=== PATIENT | male | born 1980 | race Caucasian/White ===

== ENCOUNTER 2019-10-06 14:15 | Emergency (ER) | payer SELFPAY ==
--- NOTE | 2019-10-06 14:57 | EDM.PDOC ---
ED HPI GENERAL MEDICAL PROBLEM - General Chief Complaint: Lower Extremity Injury/Pain Stated Complaint: R FOOT SKIN COMPLAINT Time Seen by Provider: 10/06/19 14:38 Source of Information: Reports: Patient History Limitations: Reports: No Limitations - History of Present Illness INITIAL COMMENTS - FREE TEXT/NARRATIVE: 39-year-old male attends the ER at the request of his primary care provider over at [facility]. Concern arose over discoloration of his right second toe. He recognized that the toe did not appear normal and after discussion with his mother and sending her photos who is a nurse she advised him to seek medical attention. He has no pain in the toe. 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 He states he used to weigh 430 pounds but is lost 60 pounds over the last 6 months by working out at the gym and changing his diet. His blood pressure was elevated and is coming down nicely. His cholesterol was elevated and is also coming down. He has stopped eating red meat. Concern was whether or not he was diabetic as he is having some peripheral neuropathy symptoms in both of his feet. This is been going on for many months. He therefore essentially came for a checkup and to make sure that his toe was okay and not losing its blood supply. They could not identify dorsalis pedis pulses in either foot at the clinic and nor could I in 10% of the population does not have a dorsalis pedis pulse and this appears to be his case. Onset: Gradual, Unknown/Unsure (Thinks the toe was not look quite right for good 2 weeks or more.) Duration: Day(s):, Getting Worse Location: Reports: Lower Extremity, Right (Second toe is discolored and now becoming slightly erythematous on the tip) Quality: Reports: Other (Has no pain.). Denies: Ache Severity: Mild Improves with: Reports: None Worsens with: Reports: None Context: Reports: Other (Appreciated change in color of his right second toe over the last several weeks but slightly more reddened today. It still does not hurt. He history suggest that he has bilateral mild peripheral neuropathy in both lower extremities for couple of years. The reason for this is unclear. He has never been diagnosed with diabetes.). Denies: Activity, Exercise, Lifting, Sick Contact, Trauma Associated Symptoms: Reports: No Other Symptoms Treatments [employer]: Reports: Other (see below) (None.) - Related Data Allergies Allergy/AdvReac Type Severity Reaction Status Date / Time No Known Allergies Allergy Verified 10/06/19 14:28 Home Meds: Home Meds Doxycycline [Vibramycin] 100 mg PO BID #24 cap 10/06/19 [Rx] Past Medical History - Past Health History Medical/Surgical History: Denies Medical/Surgical History Endocrine/Metabolic History: Reports: Obesity/BMI 30+ Social & Family History - Tobacco Use Smoking Status *Q: Former Smoker Used Tobacco, but Quit: Yes Month/Year Tobacco Last Used: 2018 - Recreational Drug Use Recreational Drug Use: No - Living Situation & Occupation Living situation: Reports: Single Occupation: Employed Review of Systems - Review of Systems Review Of Systems: See Below Constitutional: Reports: No Symptoms Eyes: Reports: No Symptoms Ears: Reports: No Symptoms Nose: Reports: No Symptoms Mouth/Throat: Reports: No Symptoms Respiratory: Reports: No Symptoms Cardiovascular: Reports: No Symptoms GI/Abdominal: Reports: No Symptoms Genitourinary: Reports: No Symptoms Musculoskeletal: Reports: Back Pain, Joint Pain (Knees hips low back at times but they gotten better since he is lost 60 pounds of weight.) Skin: Reports: Change in Color (Discoloration of his right fourth) Neurological: Reports: No Symptoms Psychiatric: Reports: No Symptoms ED EXAM, GENERAL - Physical Exam Exam: See Below Exam Limited By: No Limitations General Appearance: Alert, WD/WN, Anxious, Other (Mildly anxious after visit to the clinic. Vital signs are all normal other than blood pressure at 147/88 and it did come down to 142/82.) Peripheral Pulses: 0: Dorsalis Pedis (L) (Does not have a dorsalis pedis pulse by palpation or Doppler on either side. 10% of the population do not have a dorsalis pedis pulse.), Dorsalis Pedis (R), 3+: Posterior Tibial (L), Posterior Tibial (R) Extremities: Other (Examination was limited to his right foot and left foot. His second toes happened to be the longest of his toes and he has callosity on the tip of the toe with erosion of the tip of the toenail as well on the second toe and mild callosity on the tip of the right third toe as well. Essentially his boots are too small for him and are rubbing up against the toe of the boot causing callus formation. Unfortunately a little bit of infection has occurred under the callus over the dorsal toe but not not a true paronychial infection at this time. No pain on firm compression of the toe.) Neurological: Alert, Oriented, CN II-XII Intact, Normal Cognition, Normal Gait, Other (He has decreased sensation I vibration sense to the) Psychiatric: Normal Affect, Normal Mood Skin Exam: Warm, Dry, Intact, Normal Color, Other (Bluish-reddish discoloration tip of the right second toe.) Course - Vital Signs Last Recorded V/S: Last Vital Signs Temp 36.6 C 10/06/19 14:20 Pulse 78 10/06/19 14:20 Resp 16 10/06/19 14:20 BP 147/88 H 10/06/19 14:20 Pulse Ox 98 10/06/19 14:20 - Orders/Labs/Meds Orders: Active Orders 24 hr Category Date Time Status TESTOSTERONE,FREE AND TOTAL [REF] Routine Lab 10/06/19 15:17 Received Labs: Laboratory Tests 10/06/19 10/06/19 10/06/19 Range/Units 15:17 15:17 15:17 WBC 11.90 H (4.23-9.07) K/mm3 RBC 5.30 (4.63-6.08) M/mm3 Hgb 15.5 (13.7-17.5) gm/dl Hct 46.8 (40.1-51.0) % MCV 88.3 (79.0-92.2) fl MCH 29.2 (25.7-32.2) pg MCHC 33.1 (32.2-35.5) g/dl RDW Std Deviation 44.5 H (35.1-43.9) fL Plt Count 219 (163-337) K/mm3 MPV 11.6 (9.4-12.3) fl Neut % (Auto) 65.2 (34.0-67.9) % Lymph % (Auto) 25.0 (21.8-53.1) % [place] % (Auto) 7.4 (5.3-12.2) % Eos % (Auto) 1.8 (0.8-7.0) Baso % (Auto) 0.3 (0.1-1.2) % Neut # (Auto) 7.76 H (1.78-5.38) K/mm3 Lymph # (Auto) 2.98 (1.32-3.57) K/mm3 [place] # (Auto) 0.88 H (0.30-0.82) K/mm3 Eos # (Auto) 0.21 (0.04-0.54) K/mm3 Baso # (Auto) 0.03 (0.01-0.08) K/mm3 Manual Slide Review Normal smear Sodium 138 (136-145) mEq/L Potassium 4.1 (3.5-5.1) mEq/L Chloride 101 (98-107) mEq/L Carbon Dioxide 23 (21-32) mEq/L Anion Gap 18.1 H (5-15) BUN 20 H (7-18) mg/dL Creatinine 0.9 (0.7-1.3) mg/dL Est Cr Clr Drug Dosing 125.77 mL/min Estimated GFR (MDRD) > 60 (>60) mL/min BUN/Creatinine Ratio 22.2 H (14-18) Glucose 94 (74-106) mg/dL Hemoglobin A1c (4.50-6.20) % Calcium 10.0 (8.5-10.1) mg/dL Iron 59 L (65-175) ug/dL TIBC 326 (100-400) ug/dL % Saturation 18 L (20-55) % Transferrin 261 (202-364) mg/dL Total Bilirubin 0.7 (0.2-1.0) mg/dL AST 45 H (15-37) U/L ALT 58 (16-63) U/L Alkaline Phosphatase 66 (46-116) U/L C-Reactive Protein 1.3 H* (<1.0) mg/dL Total Protein 8.4 H (6.4-8.2) g/dl Albumin 4.4 (3.4-5.0) g/dl Globulin 4.0 gm/dL Albumin/Globulin Ratio 1.1 (1-2) Vitamin B12 1859 H (193-986) pg/ml TSH 3rd Generation 2.135 (0.358-3.74) uIU/mL 10/06/19 Range/Units 15:17 WBC (4.23-9.07) K/mm3 RBC (4.63-6.08) M/mm3 Hgb (13.7-17.5) gm/dl Hct (40.1-51.0) % MCV (79.0-92.2) fl MCH (25.7-32.2) pg MCHC (32.2-35.5) g/dl RDW Std Deviation (35.1-43.9) fL Plt Count (163-337) K/mm3 MPV (9.4-12.3) fl Neut % (Auto) (34.0-67.9) % Lymph % (Auto) (21.8-53.1) % [place] % (Auto) (5.3-12.2) % Eos % (Auto) (0.8-7.0) Baso % (Auto) (0.1-1.2) % Neut # (Auto) (1.78-5.38) K/mm3 Lymph # (Auto) (1.32-3.57) K/mm3 [place] # (Auto) (0.30-0.82) K/mm3 Eos # (Auto) (0.04-0.54) K/mm3 Baso # (Auto) (0.01-0.08) K/mm3 Manual Slide Review Sodium (136-145) mEq/L Potassium (3.5-5.1) mEq/L Chloride (98-107) mEq/L Carbon Dioxide (21-32) mEq/L Anion Gap (5-15) BUN (7-18) mg/dL Creatinine (0.7-1.3) mg/dL Est Cr Clr Drug Dosing mL/min Estimated GFR (MDRD) (>60) mL/min BUN/Creatinine Ratio (14-18) Glucose (74-106) mg/dL Hemoglobin A1c 6.00 (4.50-6.20) % Calcium (8.5-10.1) mg/dL Iron (65-175) ug/dL TIBC (100-400) ug/dL % Saturation (20-55) % Transferrin (202-364) mg/dL Total Bilirubin (0.2-1.0) mg/dL AST (15-37) U/L ALT (16-63) U/L Alkaline Phosphatase (46-116) U/L C-Reactive Protein (<1.0) mg/dL Total Protein (6.4-8.2) g/dl Albumin (3.4-5.0) g/dl Globulin gm/dL Albumin/Globulin Ratio (1-2) Vitamin B12 (193-986) pg/ml TSH 3rd Generation (0.358-3.74) uIU/mL - Radiology Interpretation Free Text/Narrative:: 39year-old male attends the ED at the request of his primary care physician due to abnormality of his right second toe that is likely been going on for over a month. She was concerned about the discoloration of the toe and whether or not he had loss circulation to the toe. The patient has some peripheral neuropathy symptoms in both dorsal feet for many months and perhaps even a year. He is not known to be diabetic. He has recently lost 60 pounds and is down from 430 to 370 pounds. He does not report any known trauma to the toe. The toe has slight erythema of the distal aspect as well as some blueness or discoloration of the toe itself. Unfortunately in his right second toe is the longest toe and it is rubbing up against his boot. He works in the [employer] service. On inspection of the toe he has callosity of the tip of the toe with loss of approximately a third of the toenail itself due to blunt force trauma on a repetitive basis. He has a mild callosity of his right third toe as well with retention of the nail. There is no problem with the circulation to the toe and there is no signs of any purulent discharge or ulceration. There is some mild erythema to the dorsal aspect and I think is more trauma to the nail. However I will plan on placing him on doxycycline 100 mg twice daily for 12 days to make sure that there is no infection that could spread. He requested lab work be done to particularly identify he is not a diabetic. - Re-Assessments/Exams Free Text/Narrative Re-Assessment/Exam: 10/06/19 16:02 White count is minimally elevated at 11.90. The differential shows 65% neutrophils. Hemoglobin is 15.5 with hematocrit of 46.8. Platelet counts 219,000 hemoglobin A1c is 6.0 indicating he does not have any signs of diabetes. 10/06/19 16:33 Differential on the white count is 65% neutrophils and no bands cells identified. Sodium was 138 with a potassium of 4.1. Chloride is 101 with a bicarb of 23. Anion gap is elevated at 18.1. BUN is 20 with a creatinine of 0.9. GFR is greater than 60. Glucose is 94 with a hemoglobin A1c of 6.0. Calcium is 10.0 iron is 59 which actually is on slightly on the low side. TIBC is 326 which is upper limits of normal. Percent saturation is low at 18 transferrin is 261 which is normal bilirubin is 0.7 with an AST of 45 and ALT of 58 and alk phosphatase of 66. C-reactive protein is 1.3. Total protein is 8.4 with an albumin fraction of 4.4. B12 is pending TSH is 2.135 which is normal Departure - Departure Time of Disposition: 16:36 Disposition: Home, Self-Care 01 Condition: Fair Clinical Impression: Infected abrasion of toe of right foot Qualifiers: Encounter type: initial encounter Qualified Code(s): S90.414A - Abrasion, right lesser toe(s), initial encounter - Discharge Information *PRESCRIPTION DRUG MONITORING PROGRAM REVIEWED*: Not Applicable *COPY OF PRESCRIPTION DRUG MONITORING REPORT IN PATIENT RICKY: Not Applicable Prescriptions: Doxycycline [Vibramycin] 100 mg PO BID #24 cap Referrals: PCP,None [Primary Care Provider] - Forms: ED Department Discharge Additional Instructions: Evaluation in the emergency room today in regards to concerns for slight redness and discoloration of the right second toe. On inspection of the toe there is callosity formation on the tip of the toe with wear and tear on the nailbed or the tip of the toenail as well as a callosity forming on the adjacent third toe. This means your boots are a bit too small for you in their toes particular second toe which is a lot your longest toe is rubbing on the edge of the boot. This is creating thickening of the skin in this area to protect it. Fortunately appears that it is developed a low-grade infection and requires antibiotic doxycycline 100 mg twice daily for the next 12 days to clear up infection in the toe. Next time you buy boots you need to get at least a half an inch larger size. Testing the toes much as possible with double socks or other mechanisms that we discussed such as mole skin beneficial to protect the toe from further damage. Lab work was done at your request and in particular revealed that you have no signs or symptoms of diabetes. Your hemoglobin A1c was 6.0 which is excellent. Your thyroid gland is functioning normally. Liver kidneys were functioning normally as well. The only finding was that you are starting to become iron deficient but without any anemia or low blood. You need to add iron to your vitamin tablet taken daily to slowly bring your iron levels back up to normal. This is likely occurred since you removed red meat from your diet. Doxycycline antibiotic should be taken twice daily but not with your vitamins or any milk products as it binds onto the medication and makes it ineffectual. Lecture told to return to normal color over the next 6 weeks it will take some time. Dust arranging for a primary care physician to address other issues. In regards to other test ordered today including serum testosterone level and your vitamin B12 levels these will become available to me over the next 3 to 4 days and I will contact you by phone in this regard. Sepsis Event Note - Evaluation Sepsis Screening Result: No Definite Risk - Focused Exam Vital Signs: Vital Signs Temp Pulse Resp BP Pulse Ox 10/06/19 14:20 36.6 C 78 16 147/88 H 98 Date Exam was Performed: 10/06/19 Time Exam was Performed: 20:08 - My Orders Last 24 Hours: My Active Orders 10/06/19 15:17 TESTOSTERONE,FREE AND TOTAL [REF] Routine - Assessment/Plan Last 24 Hours: My Active Orders 10/06/19 15:17 TESTOSTERONE,FREE AND TOTAL [REF] Routine
== END 2019-10-06 16:40 | disposition home or self-care (01) ==
LOC: JD.ED 14:15
DX: S90.414A Abrasion, right lesser toe(s), initial encounter (principal); L08.9 Local infection of the skin and subcutaneous tissue, unspecified; E66.9 Obesity, unspecified; Z87.891 Personal history of nicotine dependence; X58.XXXA Exposure to other specified factors, initial encounter
CPT/HCPCS: 36415; 80053; 82607; 83036; 83540; 84402; 84403; 84443; 84466; 85025; 86140; 99283

== ENCOUNTER 2020-02-16 08:09 | Day surgery (SDC) | payer SELFPAY ==
[~2020-02-16 08:09] MED LIST: Lactated Ringers 1,000 ML IV SCH; Lidocaine 1%/Sod Bicarbonate in NS 8.4% 1 ML Syringe IDERM PRN; Sodium Chloride 0.9% 10 ML Syringe FLUSH PRN
[2020-02-16] MEDS ORDERED: Lidocaine 1% 30 ML SDV ONE (09:00)
--- NOTE | 2020-02-16 09:58 | PCM.PREANE ---
Preanesthetic Assessment - Anesthesia/Transfusion/Family Hx Anesthesia History: Prior Anesthesia Without Reaction - Review of Systems General: No Symptoms Pulmonary: No Symptoms Cardiovascular: No Symptoms Gastrointestinal: No Symptoms Neurological: No Symptoms Other: Reports: None - Physical Assessment NPO Status Date: 02/15/20 NPO Status Time: 22:30 Vital Signs: Last Vital Signs Temp 97.2 F 02/16/20 08:10 Pulse 59 L 02/16/20 08:10 Resp 16 02/16/20 08:10 BP 144/72 H 02/16/20 08:10 Pulse Ox 94 L 02/16/20 08:10 Height: 1.88 m Weight: 146.057 kg ASA Class: 2 Mental Status: Alert & Oriented x3 Airway Class: Mallampati = 1 Dentition: Reports: Normal Dentition Thyro-Mental Finger Breadths: 3 Mouth Opening Finger Breadths: 3 ROM/Head Extension: Full (full segundo) Lungs: Clear to Auscultation, Normal Respiratory Effort Cardiovascular: Regular Rate, Regular Rhythm - Allergies Allergies/Adverse Reactions: Allergies Allergy/AdvReac Type Severity Reaction Status Date / Time No Known Allergies Allergy Verified 02/16/20 08:51 - Acknowledgements Anesthesia Type Planned: Regional Block, MAC Pt an Appropriate Candidate for the Planned Anesthesia: Yes Alternatives and Risks of Anesthesia Discussed w Pt/Guardian: Yes Pt/Guardian Understands and Agrees with Anesthesia Plan: Yes PreAnesthesia Questionnaire - Past Health History Medical/Surgical History: Denies Medical/Surgical History Respiratory History: Reports: Sleep Apnea Musculoskeletal History: Reports: Other (See Below) Other Musculoskeletal History: osteomyelitis to right foot Neurological History: Reports: Other (See Below) Other Neuro History: herniated disc with cortisone injection Psychiatric History: Reports: None Endocrine/Metabolic History: Reports: Obesity/BMI 30+ (Morbid) Hematologic History: Reports: None Immunologic History: Reports: None Oncologic (Cancer) History: Reports: None Dermatologic History: Reports: None - Infectious Disease History Infectious Disease History: Reports: None - Past Surgical History Head Surgeries/Procedures: Reports: None Endocrine Surgical History: Reports: None Neurological Surgical History: Reports: None Musculoskeletal Surgical History: Reports: None Oncologic Surgical History: Reports: None Dermatological Surgical History: Reports: None - SUBSTANCE USE Smoking Status *Q: Never Smoker Recreational Drug Use History: No - CURRENT (IN HOUSE) MEDS Current Meds: Current Medications Lactated Ringer's (Ringers, Lactated) 1,000 mls @ 125 mls/hr IV ASDIRECTED DUARTE Stop: 02/16/20 23:00 Last Admin: 02/16/20 08:30 Dose: 125 mls/hr Documented by: Lidocaine/Sodium Bicarbonate (Buffered Lidocaine 1% In Ns 8.4%) 0.25 ml IDERM ONETIME PRN PRN Reason: Prior to IV Start Stop: 02/16/20 18:00 Last Admin: 02/16/20 08:30 Dose: 0.25 ml Documented by: Sodium Chloride (Saline Flush) 10 ml FLUSH ASDIRECTED PRN PRN Reason: Keep Vein Open Stop: 02/16/20 18:00 Discontinued Medications Bupivacaine HCl (Marcaine 0.5%) Confirm Administered Dose 30 ml .ROUTE .STK-MED ONE Stop: 02/16/20 09:01 Lidocaine HCl (Xylocaine-Mpf 1%) Confirm Administered Dose 30 ml .ROUTE .STK-MED ONE Stop: 02/16/20 09:01
[2020-02-16] MEDS ORDERED: Ropivacaine 0.5% 5 MG/ML 30 ML SDV ONE (10:01)
[2020-02-16] MEDS ORDERED: Lidocaine 2% with EPINEPHrine 1:200,000 20 ML SDV ONE (10:03)
[2020-02-16] MEDS ORDERED: Midazolam 1 MG/ML 2 ML SDV ONE (10:07)
[2020-02-16] MEDS ORDERED: Lidocaine 1% 4 ML ONE (10:36)
[2020-02-16] MEDS ORDERED: Propofol 200 MG/20 ML SDV ONE (10:36)
[2020-02-16] MEDS ORDERED: fentaNYL 100 MCG/2 ML SDV ONE (10:41)
[2020-02-16] MEDS ORDERED: ceFAZolin 1 GM Vial ONE (10:42)
[2020-02-16] MEDS: Bupivacaine 0.5% 30 ML SDV ONE ×2 (10:50→11:35)
--- NOTE | 2020-02-16 11:15 | PCM.PRNOTE ---
- Free Text/Narrative Note: Postoperative pain control requested by the surgeon Requested by Dr. Wilfredo Meraz. Dx: Right 2nd toe osteomyelitis Surgical Procedure : Right 2nd toe partial amputation Preoperative Treatment: Right ankle block Patient received explanation about an ankle block, benefits and risks discussed, consent signed. Patient in preoperative area, monitors on, oxygen 2L via nasal cannula, semi-Hale position, right foot supported by folded blankets a elevated position. Time out done. Right fool cleaned with Chloraprep stick and allowed to dry. 4 mg of Midazolam given . 1st Injection performed behind medial malleolus at tibial nerve in fanning fashion with negative aspiration confirmed. 2nd injection between extensor hallucis longus and extensor digitorum longus tendons at deep peroneal nerve with negative aspiration confirmed. 3rd injection in the ring fashion infiltrati on at the dorsal surface of the foot at superficial peroneal nerve distribution. Total of 18 mls of 0.5% Ropivacaine with 12 mls of 2% Lidocaine PF with 1:200k epinephrine used. Patient has tolerated the procedure well. No signs of local anesthetic systemic toxicity noted. Start 10:14 End: 1025
--- NOTE | 2020-02-16 11:53 | PCM48HPAN ---
Post Anesthesia Note - EVALUATION WITHIN 48HRS OF ANESTHETIC Vital Signs in Normal Range: Yes Patient Participated in Evaluation: Yes Respiratory Function Stable: Yes Airway Patent: Yes Cardiovascular Function Stable: Yes Hydration Status Stable: Yes Pain Control Satisfactory: Yes Nausea and Vomiting Control Satisfactory: Yes Mental Status Recovered: Yes Vital Signs: Last Vital Signs Temp 97.7 F 02/16/20 11:43 Pulse 60 02/16/20 11:43 Resp 12 02/16/20 11:43 BP 113/47 L 02/16/20 11:43 Pulse Ox 94 L 02/16/20 11:43
--- NOTE | 2020-02-16 11:58 | PCM.OPNOTE ---
- General Post-Op/Procedure Note Date of Surgery/Procedure: 02/16/20 Pre Op Diagnosis: Painful/symptomatic Ulcer, RIGHT 2nd toe. Painful/Symptomatic Osteomyelitis, RIGHT 2nd toe, distal phalange. Post-Op Diagnosis: Same Primary Surgeon: Wilfredo Meraz II Anesthesia Provider: Caio Hodges Pathology: bone - distal phalange, RIGHT 2nd toe EBL in mLs: 10 Complications: None Condition: Good Free Text/Narrative:: Patient left the OR for recovery with vital signs stable and vascular status grossly intact to digits 1-5, RIGHT foot.
--- NOTE | 2020-02-16 12:59 | OR ---
DATE OF OPERATION: 02/16/2020 SURGEON: Wilfredo Meraz II, DPM LOCATION: . ANESTHESIA: MAC with local block about the right foot. ANESTHESIA PROVIDER: Caio Hodges CRNA HEMOSTASIS: Right pneumatic ankle tourniquet at 250 mmHg. PREOPERATIVE DIAGNOSIS: 1. Painful symptomatic ulcer, right second toe. 2. Painful symptomatic osteomyelitis, right second toe involving distal phalange. POSTOPERATIVE DIAGNOSIS: 1. Painful symptomatic ulcer, right second toe. 2. Painful symptomatic osteomyelitis, right second toe involving distal phalange. OPERATION PERFORMED: Partial amputation of right second toe. DESCRIPTION OF PROCEDURE: Upon arrival on admission to the hospital, the patient was examined and cleared for surgery by the assigned anesthesia provider. IV access was obtained in the preoperative area after which patient was given prophylactic antibiotics consisting of 3 g of Ancef IV piggyback. The patient was then brought to the OR via gurney and assisted with transfer onto the operating room table in the supine position. The patient was given a combination of sedations and was adequately sedated before receiving 10 mL of 1:1 mixture of 1% lidocaine plain and 0.5% Marcaine plain in the form of local infiltrative block around the right second toe. The patient also received 0.5% Marcaine plain in the form of an ankle block involving his right foot and ankle. The right lower extremity was then wrapped with cotton Webril padding above the ankle joint in preparation for a nonsterile pneumatic ankle tourniquet, which was then draped with a sterile drape. Right lower extremity was then prepped and draped in the usual aseptic manner. Right lower extremity was then elevated and exsanguinated with the use of an Esmarch bandage before inflating the pneumatic ankle tourniquet to 250 mmHg pressure. The Esmarch bandage was removed, and right lower extremity was placed back to the level of the operating room table. Attention was then directed to the right second toe where a distal fishmouth incision was created proximal to the distal articular phalangeal surface. This was a controlled depth total circumferential incision that allowed for the distal phalange of the right second toe to be completely resected involving the toenail plate and bed as well. The distal phalange was then dissected free from the soft tissue attachments and was sent to Pathology for gross microscopic evaluation. It was at this level that the aerobic and anaerobic cultures were also obtained from the wound site intra-articularly. The wound was then copiously lavaged with sterile saline solution, and after the tip of the right second toe was reflected, subcutaneous stitches consisting of 3-0 and 4-0 Vicryl were undertaken to reapproximate the resected surface of the right second toe. After this had been completed, the skin would be reapproximated with 4-0 Prolene. The patient received an additional 10 mL of 0.5% Marcaine plain injected about the right second toe to the level of the MTPJ. Dressings will consist of Betadine- soaked Adaptic gauze, 4x4 gauze, Johnny, and Emil bandage. Upon completion of the surgery, the right pneumatic ankle tourniquet was deflated, and it was noted that digits 1 through 5 of the right lower extremity became pink indicating that normal vascular perfusion had returned. The patient appeared to tolerate the procedure and anesthesia well and left the OR for recovery with his vital signs being stable and vascular status intact in digits 1 through 5 of the right foot with no apparent complications. In recovery, the patient received written and oral postoperative instructions as well as postoperative pain medication. The patient will ambulate partial weightbearing with a postoperative shoe about his right foot and ankle. ESTIMATED BLOOD LOSS: For these procedures was approximately 10 mL but considered negligible. COMPLICATIONS: There were no other apparent or obvious complications. M[facility] /[id number]
== END 2020-02-16 12:50 | disposition home or self-care (01) ==
LOC: JD.SDS 08:09
PROVIDERS: ATTEND Podiatrist Foot & Ankle Surgery
DX: M86.171 Other acute osteomyelitis, right ankle and foot (principal); M86.671 Other chronic osteomyelitis, right ankle and foot; L97.519 Non-pressure chronic ulcer of other part of right foot with unspecified severity; M79.89 Other specified soft tissue disorders; G47.30 Sleep apnea, unspecified; E66.01 Morbid (severe) obesity due to excess calories; Z68.41 Body mass index [BMI] 40.0-44.9, adult; Z87.891 Personal history of nicotine dependence
CPT/HCPCS: 28825; 87075; 87205; J0690; J2001; J2250; J2704; J2795; J3010; J3490; J7120; 01830; 64450

== ENCOUNTER 2023-02-20 01:23 | Emergency (ER) | payer OTHER, BC ==
[2023-02-20 01:51] LABS: HEMATOCRIT 43.7 % (40.1-51.0); HEMOGLOBIN 14.6 gm/dl (13.7-17.5); MEAN CORPUSCULAR HEMOGLOBIN 29.5 pg (25.7-32.2); MEAN CORPUSCULAR HGB CONC 33.4 g/dl (32.2-35.5); MEAN CORPUSCULAR VOLUME 88.3 fl (79.0-92.2); MEAN PLATELET VOLUME 11.5 fl (9.4-12.3); PLATELET COUNT,PLT 185 K/mm3 (163-337); RED BLOOD CELL COUNT 4.95 M/mm3 (4.63-6.08); WHITE BLOOD CELL COUNT,WBC 12.46 K/mm3 (4.23-9.07)
[2023-02-20 02:10] LABS: INR 1.04; PROTHROMBIN TIME 11.1 SECONDS (9.7-12.0)
[2023-02-20 02:12] LABS: PTT,PARTIAL THROMBOPLSTIN TIME 31.7 SECONDS (21.7-31.4)
[2023-02-20] MEDS ORDERED: Sodium Chloride 0.9% 1,000 ML IV SCH (02:15)
[2023-02-20 02:22] LABS: A/G RATIO 1.1 (1-2); ALBUMIN 4.2 g/dl (3.4-5.0); ANION GAP 20.5 (5-15); BILIRUBIN TOTAL 0.3 mg/dL (0.2-1.0); CALCIUM 9.1 mg/dL (8.5-10.1); EST CRCL DRUG DOSING (CG) 109.86 mL/min; ETHANOL BLOOD MEDICAL 0.14 gm% (0.00); POTASSIUM,K 3.5 mEq/L (3.5-5.1); PROTEIN TOTAL,TP 8.1 g/dl (6.4-8.2)
[2023-02-20 02:27] LABS: BAND PERCENT MAN 0 % (0-10); BASOPHILS PERCENT MAN 0 (0.2-1.2); EOSINOPHILS PERCENT MAN 2 % (0.8-7.0); LYMPHOCYTES % ATYPICAL MANUAL 0 %; LYMPHOCYTES PERCENT MAN 32 % (20-40); MONOCYTES PERCENT MAN 6 % (2-10); PLATELET COUNT ESTIMATE ADEQUATE
== END 2023-02-20 02:20 ==
LOC: JD.ED 01:23
DX: S30.811A Abrasion of abdominal wall, initial encounter (principal); S80.811A Abrasion, right lower leg, initial encounter; F10.929 Alcohol use, unspecified with intoxication, unspecified; S80.212A Abrasion, left knee, initial encounter; E87.20 Acidosis, unspecified; I10 Essential (primary) hypertension; E66.9 Obesity, unspecified; Z68.42 Body mass index [BMI] 45.0-49.9, adult; F17.210 Nicotine dependence, cigarettes, uncomplicated; Z79.899 Other long term (current) drug therapy; V50.5XXA Driver of pick-up truck or van injured in collision with pedestrian or animal in traffic accident, initial encounter; Y92.410 Unspecified street and highway as the place of occurrence of the external cause
CPT/HCPCS: 36415; 70450; 71260; 72125; 74177; 80053; 80307; 83690; 85007; 85027; 85610; 85730; 99285; J7030; 99284

== ENCOUNTER 2023-12-30 18:53 | Inpatient (IN) | payer BC ==
[2023-12-30] MEDS ORDERED: Sodium Chloride 0.9% 10 ML Syringe FLUSH PRN (19:16)
[2023-12-30] MEDS ORDERED: Naloxone 0.4 MG/ML SDV IVPUSH PRN (19:16)
[2023-12-30 19:42] LABS: BASOPHILS ABSOLUTE AUTO 0.1 K/mm3 (0.0-0.2); BASOPHILS PERCENT AUTO 0.4 % (0.0-1.0); EOSINOPHILS ABSOLUTE AUTO 0.1 K/mm3 (0.0-0.4); EOSINOPHILS PERCENT AUTO 0.9 % (0.0-6.0); HEMATOCRIT 42.6 % (42.0-52.0); HEMOGLOBIN 14.7 gm/dl (14.0-18.0); IMMATURE GRAN ABSOLUTE AUTO 0.04 K/mm3 (0.00-0.05); IMMATURE GRAN PERCENT AUTO 0.3 % (0.0-0.4); LYMPHOCYTES PERCENT AUTO 23.7 % (24.0-44.0); MEAN CORPUSCULAR HEMOGLOBIN 30.1 pg (28.0-32.0); MEAN CORPUSCULAR HGB CONC 34.5 g/dl (32.0-36.0); MEAN CORPUSCULAR VOLUME 87.3 fl (83.0-99.0); MEAN PLATELET VOLUME 11.7 fl (9.4-12.4); MONOCYTES ABSOLUTE AUTO 1.2 K/mm3 (0.0-0.8); MONOCYTES PERCENT AUTO 9.7 % (0.0-8.0); NEUTROPHILS ABSOLUTE AUTO 8.3 K/mm3 (1.8-7.7); PLATELET COUNT,PLT 190 K/mm3 (150-400); RED BLOOD CELL COUNT 4.88 M/mm3 (4.52-5.90); WHITE BLOOD CELL COUNT,WBC 12.73 K/mm3 (3.9-11.3)
[2023-12-30] MEDS: Clindamycin Phosphate in D5W 300 MG in Premix Bag 1 BAG IV SCH (19:59)
[2023-12-30] MEDS ORDERED: Lidocaine 1% 20 ML MDV ONE (20:13)
[2023-12-30] MEDS ORDERED: Bupivacaine 0.5% 30 ML SDV ONE (20:13)
[2023-12-30] MEDS ORDERED: fentaNYL 100 MCG/2 ML SDV ONE ×2 (20:24→21:22)
[2023-12-30] MEDS ORDERED: Lidocaine 1% 5 ML VIAL ONE (20:24)
[2023-12-30] MEDS ORDERED: Midazolam 1 MG/ML 2 ML SDV ONE ×2 (20:24→22:00)
[2023-12-30] MEDS ORDERED: Lidocaine 0.5% 50 ML SDV ONE (20:25)
[2023-12-30] MEDS ORDERED: Sodium Bicarbonate 8.4% 50 MEQ/50 ML SDV ONE (20:25)
[2023-12-30] MEDS ORDERED: Propofol 200 MG/20 ML SDV ONE (20:28)
[2023-12-30] MEDS: Ropivacaine 0.5% 5 MG/ML 30 ML SDV ONE (21:03)
[2023-12-30] MEDS: Lidocaine 2% 20 ML MDV ONE (21:03)
[2023-12-30] MEDS ORDERED: Lactated Ringers 1,000 ML ONE (21:13)
[2023-12-30] MEDS ORDERED: Ketorolac 30 MG/ML SDV ONE (21:56)
[2023-12-30] MEDS ORDERED: HYDROmorphone 0.5 MG/0.5 ML Syringe ONE (22:03)
[2023-12-30] MEDS: Heparin Sodium 5,000 Units/ML Vial SUBCUT ONE (22:15)
[2023-12-30] MEDS: Sodium Chloride 0.9% 10 ML Syringe FLUSH SCH (22:15)
[2023-12-30] MEDS: Sodium Chloride 0.9% 1,000 ML IV SCH (22:40)
[2023-12-30] MEDS: Acetaminophen 325 MG Tab PO PRN (22:42)
[2023-12-30] MEDS: Heparin Sodium 5,000 Units/ML Vial SUBCUT SCH (22:58)
[2023-12-31] MEDS: Ketorolac 30 MG/ML SDV IVPUSH PRN (04:02)
[2023-12-31] MEDS: metFORMIN 500 MG Tab PO SCH (06:50)
[2023-12-31 06:57] LABS: BASOPHILS PERCENT AUTO 0.4 % (0.0-1.0); EOSINOPHILS ABSOLUTE AUTO 0.1 K/mm3 (0.0-0.4); EOSINOPHILS PERCENT AUTO 0.9 % (0.0-6.0); HEMATOCRIT 40.4 % (42.0-52.0); HEMOGLOBIN 13.7 gm/dl (14.0-18.0); IMMATURE GRAN ABSOLUTE AUTO 0.04 K/mm3 (0.00-0.05); IMMATURE GRAN PERCENT AUTO 0.4 % (0.0-0.4); LYMPHOCYTES ABSOLUTE AUTO 2.6 K/mm3 (1.0-4.8); LYMPHOCYTES PERCENT AUTO 26.6 % (24.0-44.0); MEAN CORPUSCULAR HEMOGLOBIN 29.7 pg (28.0-32.0); MEAN CORPUSCULAR HGB CONC 33.9 g/dl (32.0-36.0); MEAN CORPUSCULAR VOLUME 87.4 fl (83.0-99.0); MEAN PLATELET VOLUME 11.4 fl (9.4-12.4); MONOCYTES ABSOLUTE AUTO 0.8 K/mm3 (0.0-0.8); MONOCYTES PERCENT AUTO 8.2 % (0.0-8.0); NEUTROPHILS ABSOLUTE AUTO 6.2 K/mm3 (1.8-7.7); NEUTROPHILS PERCENT AUTO 63.5 % (41.0-71.0); PLATELET COUNT,PLT 143 K/mm3 (150-400); RED BLOOD CELL COUNT 4.62 M/mm3 (4.52-5.90); WHITE BLOOD CELL COUNT,WBC 9.71 K/mm3 (3.9-11.3)
[2023-12-31] MEDS ORDERED: Heparin Sodium 5,000 Units/ML Vial SUBCUT SCH (08:00)
[2023-12-31 08:17] LABS: CALCIUM 8.8 mg/dL (8.5-10.1); EST CRCL DRUG DOSING (CG) 108.75 mL/min
[2023-12-31] MEDS: HYDROmorphone 0.5 MG/0.5 ML Syringe IVPUSH PRN (08:44)
[2023-12-31] MEDS: Losartan 50 MG Tab PO SCH (08:46)
[2023-12-31] MEDS: Sodium Chloride 0.9% 1,000 ML IV SCH (12:16)
== END 2023-12-31 15:29 | disposition home or self-care (01) | DRG 364 ==
LOC: JD.MS 18:53
PROVIDERS: ADMIT Family Medicine; ATTEND Family Medicine
PROC: 0J9K0ZZ Drainage of Left Hand Subcutaneous Tissue and Fascia, Open Approach (ICD-10-PCS; principal; 2023-12-30 20:30)
DX: L02.512 Cutaneous abscess of left hand (principal); L03.114 Cellulitis of left upper limb; I10 Essential (primary) hypertension; G47.30 Sleep apnea, unspecified; E66.9 Obesity, unspecified; M79.5 Residual foreign body in soft tissue; F17.210 Nicotine dependence, cigarettes, uncomplicated; Z79.84 Long term (current) use of oral hypoglycemic drugs; Z79.899 Other long term (current) drug therapy; Z89.421 Acquired absence of other right toe(s); Z86.16 Personal history of COVID-19; Z68.42 Body mass index [BMI] 45.0-49.9, adult
CPT/HCPCS: 00300; 36415; 76000; 76000-26; 80048; 85025; 87070; 87075; 87205; 87641; 99140; A9270-GY; J0665; J0736; J1170; J1644; J1885; J2001; J2250; J2704; J2795; J3010; J3490; J7030; J7120

== ENCOUNTER 2024-01-02 13:36 | Emergency (ER) | payer BC | END 2024-01-02 14:08 | disposition home or self-care (01) | LOC: JD.ED 13:36 | DX: Z48.01 Encounter for change or removal of surgical wound dressing (principal) | CPT/HCPCS: 99282 ==

== ENCOUNTER 2024-07-14 18:41 | Emergency (ER) | payer BC ==
[2024-07-14] MEDS ORDERED: Sodium Chloride 0.9% 10 ML Syringe FLUSH PRN (19:23)
[2024-07-14 19:57] LABS: HEMATOCRIT 48.2 % (42.0-52.0); HEMOGLOBIN 15.6 gm/dl (14.0-18.0); MEAN CORPUSCULAR HEMOGLOBIN 27.9 pg (28.0-32.0); MEAN CORPUSCULAR HGB CONC 32.4 g/dl (32.0-36.0); MEAN CORPUSCULAR VOLUME 86.2 fl (83.0-99.0); MEAN PLATELET VOLUME 10.9 fl (9.4-12.4); PLATELET COUNT,PLT 242 K/mm3 (150-400); RED BLOOD CELL COUNT 5.59 M/mm3 (4.52-5.90); WHITE BLOOD CELL COUNT,WBC 11.84 K/mm3 (3.9-11.3)
[2024-07-14 20:15] LABS: HEMOGLOBIN A1C 5.3 %
[2024-07-14 20:19] LABS: ALBUMIN 4.2 g/dl (3.4-5.0); ANION GAP 13.7 (5-15); BILIRUBIN TOTAL 0.6 mg/dL (0.2-1.0); BUN/CREATININE RATIO 13.8 (14-18); C-REACTIVE PROTEIN 2.73 mg/dL (<0.30); CALCIUM 9.6 mg/dL (8.5-10.1); CREATININE 1.3 mg/dL (0.7-1.3); EST CRCL DRUG DOSING (CG) 80.42 mL/min; POTASSIUM,K 3.7 mEq/L (3.5-5.1); PROTEIN TOTAL,TP 8.5 g/dl (6.4-8.2)
[2024-07-14 20:21] LABS: BAND PERCENT MAN 0 % (0-10); BASOPHILS PERCENT MAN 2 (0.2-1.2); EOSINOPHILS PERCENT MAN 4 % (0.8-7.0); LYMPHOCYTES % ATYPICAL MANUAL 0 %; LYMPHOCYTES PERCENT MAN 27 % (20-40); MONOCYTES PERCENT MAN 7 % (2-10); PLATELET COUNT ESTIMATE ADEQUATE
[2024-07-14] MEDS: Sodium Chloride 0.9% 100 ML IV SCH (21:04)
[2024-07-14] MEDS: Iopamidol 755 Mg/ML 100 ML Bottle IVPUSH ONE (21:04)
[2024-07-14] MEDS: Sodium Chloride 0.9% 10 ML Syringe FLUSH ONE (21:04)
[2024-07-14] MEDS: VANCOmycin 2 GM/400 ML 2 GM in Premix Bag 1 BAG IV ONE (22:52)
== END 2024-07-15 04:30 ==
LOC: JD.ED 18:41
DX: M86.9 Osteomyelitis, unspecified (principal); I10 Essential (primary) hypertension; E66.9 Obesity, unspecified; Z86.16 Personal history of COVID-19; Z79.899 Other long term (current) drug therapy; Z68.41 Body mass index [BMI] 40.0-44.9, adult
CPT/HCPCS: 36415; 73701; 80053; 83036; 83605; 85007; 85027; 85652; 86140; 87040; 93971; 96365; 96366; 99284; J3372; J3490; Q9967

== ENCOUNTER 2025-05-06 22:17 | Emergency (ER) | payer BC ==
[2025-05-06 23:34] LABS: BASOPHILS ABSOLUTE AUTO 0.1 K/mm3 (0.0-0.2); BASOPHILS PERCENT AUTO 0.5 % (0.0-1.0); EOSINOPHILS ABSOLUTE AUTO 0.2 K/mm3 (0.0-0.4); EOSINOPHILS PERCENT AUTO 1.7 % (0.0-6.0); IMMATURE GRAN ABSOLUTE AUTO 0.02 K/mm3 (0.00-0.05); IMMATURE GRAN PERCENT AUTO 0.2 % (0.0-0.4); LYMPHOCYTES ABSOLUTE AUTO 3.2 K/mm3 (1.0-4.8); LYMPHOCYTES PERCENT AUTO 30.7 % (24.0-44.0); MEAN PLATELET VOLUME 11.5 fl (9.4-12.4); MONOCYTES ABSOLUTE AUTO 0.9 K/mm3 (0.0-0.8); MONOCYTES PERCENT AUTO 9.0 % (0.0-8.0); NEUTROPHILS ABSOLUTE AUTO 6.1 K/mm3 (1.8-7.7); NEUTROPHILS PERCENT AUTO 57.9 % (41.0-71.0); NRBC ABSOLUTE 0.00 (0.00-0.02); NRBC PERCENT 0.0 % (0.0-0.2); PLATELET COUNT,PLT 156 K/mm3 (150-400); RED BLOOD CELL COUNT 5.98 M/mm3 (4.52-5.90); WHITE BLOOD CELL COUNT,WBC 10.45 K/mm3 (3.9-11.3)
[2025-05-07 00:09] LABS: A/G RATIO 1.2 (1-2); ALANINE AMINOTRANSFERASE,ALT 46.0 U/L (16-63); ASPARTATE AMNIOTRANSFERASE,AST 29.0 U/L (15-37); BILIRUBIN TOTAL 0.5 mg/dL (0.2-1.0); BLOOD UREA NITROGEN,BUN 20.0 mg/dL (7-18); CARBON DIOXIDE,CO2 28.0 mEq/L (21-32); CHLORIDE,CL 105.0 mEq/L (98-107); CREATININE 1.3 mg/dL (0.7-1.3); EST CRCL DRUG DOSING (CG) 81.95 mL/min; ESTIMATED GFR 69.0 mL/min (>60); GLUCOSE RANDOM 98.0 mg/dL (70-99); POTASSIUM,K 3.7 mEq/L (3.5-5.1); PROTEIN TOTAL,TP 8.4 g/dl (6.4-8.2); SODIUM,NA 144.0 mEq/L (136-145); TROPONIN I HIGH SENSITIVITY 12.0 pg/mL (<=76)
== END 2025-05-07 00:51 | disposition home or self-care (01) ==
LOC: JD.ED 22:17
DX: I10 Essential (primary) hypertension (principal); Z79.899 Other long term (current) drug therapy; Z86.16 Personal history of COVID-19
CPT/HCPCS: 36415; 80053; 84484; 85025; 93005; 99283